=== PATIENT | female | born 1945 | race American Indian/Alaskan Native ===

== ENCOUNTER 2018-05-19 17:45 | Emergency (ER) | payer BC ==
[2018-05-19 18:22] VITALS: BMI 41.1
[2018-05-19 18:26] VITALS: TEMP 97.7
--- NOTE | 2018-05-19 19:05 | ED PDOC ---
Arrival/HPI - General Chief Complaint: Trauma Time Seen by Provider: 05/19/18 18:38 Historian: Patient - History of Present Illness Narrative History of Present Illness (Text): 05/19/18 18:57 72 yo F with pmh of arthritis and COPD presents with cc of right shoulder pain s/p fall yesterday morning. Patient reports that speed walking she tripped and fell on her right side slightly hitting her head and right knee on the ground. S he did not lose consciousness. Patient claims she had slight swelling on her right eye but she applied ice that reduced the swelling. Patient also complains of right knee pain and dyspnea on exertion when rushing, associated with her COPD. Patient denies any fevers, chills, dizziness, chest pain, shortness of breath, cough, diaphoresis, nausea, vomiting, diarrhea, back pain, neck pain, or any other complaint. Time/Duration: 24 hours Symptom Course: Unchanged Activities at Onset: Light Context: Home Past Medical History - Provider Review Nursing Documentation Reviewed: Yes - Infectious Disease Hx of Infectious Diseases: None - Psychiatric Hx Substance Use: No - Surgical History Hx Hysterectomy: Yes Family/Social History - Physician Review Nursing Documentation Reviewed: Yes Family/Social History: Unknown Family HX Smoking Status: Never Smoked Hx Alcohol Use: No Hx Substance Use: No Allergies/Home Meds Allergies/Adverse Reactions: Allergies tetanus and diphtheria toxoids Allergy (Verified 05/19/18 18:23) ANAPHYLAXIS nuts Allergy (Uncoded 05/19/18 18:23) ANAPHYLAXIS Review of Systems - Physician Review All systems were reviewed & negative as marked: Yes - Review of Systems Constitutional: Normal Eyes: Normal ENT: Normal Respiratory: Normal Cardiovascular: Normal Gastrointestinal: Normal Genitourinary Female: Normal Musculoskeletal: Arthralgias (right shoulder pain) Skin: Other (mild abraison on both palms of hand) Neurological: Normal Endocrine: Normal Hemo/Lymphatic: Normal Psychiatric: Normal Physical Exam Vital Signs Reviewed: Yes Vital Signs Temp Pulse BP Pulse Ox 05/19/18 18:24 97.7 F 74 136/88 97 Temperature: Afebrile Blood Pressure: Normal Pulse: Regular Appearance: Positive for: Well-Appearing, Non-Toxic, Comfortable Pain Distress: Mild Mental Status: Positive for: Alert and Oriented X 3 - Systems Exam Head: Present: Atraumatic, Normocephalic Pupils: Present: PERRL Extroacular Muscles: Present: EOMI Conjunctiva: Present: Normal Mouth: Present: Moist Mucous Membranes Neck: Present: Normal Range of Motion Respiratory/Chest: Present: Clear to Auscultation, Good Air Exchange. No: Respiratory Distress, Accessory Muscle Use Cardiovascular: Present: Regular Rate and Rhythm, Normal S1, S2. No: Murmurs Abdomen: No: Tenderness, Distention, Peritoneal Signs Back: Present: Normal Inspection Upper Extremity: Present: Tenderness (right shoulder). No: Cyanosis, Edema Lower Extremity: Present: Normal Inspection. No: Edema Neurological: Present: GCS=15, CN II-XII Intact, Speech Normal Skin: Present: Warm, Dry, Normal Color, Abrasion (mild on both palms of hand, ecchymosis on right upper lid). No: Rashes Psychiatric: Present: Alert, Oriented x 3, Normal Insight, Normal Concentration Medical Decision Making ED Course and Treatment: 05/19/18 19:10 Impression: 72 yo F with presents with cc of right shoulder pain s/p fall yesterday morning Differential Diagnosis included but are not limited to: -- Right shoulder fracture -- Maxillofacial fracture Plan: -- Ibuprofen -- Right shoulder x-ray -- Maxillofacial /o contrast -- Reassess and disposition Prior Visits: Notes and results from previous visits were reviewed. Progress Notes: - Scribe Statement The provider has reviewed the documentation as recorded by the Noe Reich All medical record entries made by the Scribe were at my direction and personally dictated by me. I have reviewed the chart and agree that the record accurately reflects my personal performance of the history, physical exam, medical decision making, and the department course for this patient. I have also personally directed, reviewed, and agree with the discharge instructions and disposition. Disposition/Present on Arrival - Present on Arrival Any Indicators Present on Arrival: No History of DVT/PE: No History of Uncontrolled Diabetes: No Urinary Catheter: No History of Decub. Ulcer: No History Surgical Site Infection Following: None - Disposition Have Diagnosis and Disposition been Completed?: Yes Diagnosis: Contusion, Shoulder pain Disposition Time: 21:30 Patient Problems: Current Active Problems Problem Status Onset Contusion Acute Shoulder pain Acute Condition: GOOD Discharge Instructions (ExitCare): Contusion (DC), Shoulder Pain (DC) Prescriptions: Ibuprofen [Motrin] 600 mg PO Q6 #20 tab Forms: [facility] (Serbian)
[2018-05-19 20:41] VITALS: RESP 18
[2018-05-19 22:14] VITALS: BP 132/69; PULSE 65; O2SAT 100
--- NOTE | 2018-05-19 23:20 | ED PDOC ---
Physical Exam Vital Signs Temp Pulse Resp BP Pulse Ox 05/19/18 22:14 65 18 132/69 100 05/19/18 20:41 69 18 134/74 98 05/19/18 18:24 97.7 F 74 136/88 97 Medical Decision Making ED Course and Treatment: 05/19/18 19:20 Case endorsed to me by Dr. Lincoln pending CT Maxillofacial w/o contrast, reassessment, and disposition. EXAM: CT Maxillofacial without Intravenous Contrast. Electronically signed on May 19, 2018 9:55:58 PM EDT by: Richie Ga M.D. IMPRESSION: Unremarkable maxillofacial CT. 05/19/18 23:28 On re-evaluation, patient is in no acute distress. I have discussed the results and plan with the patient, who expresses understanding. Patient in agreement with plan to be discharged home. Patient is stable for discharge. Patient was instructed to follow up with physician or return if symptoms worsen or new concerning symptoms arise. - RAD Interpretation Radiology Orders: 05/19/18 18:57 MAXILLOFACIAL W/O CONTRAST [CT] Stat SHOULDER RIGHT [RAD] Stat Radio Electrician: Radiologist - Medication Orders Current Medication Orders: Discontinued Medications Ibuprofen (Motrin Tab) 600 mg PO STAT STA Stop: 05/19/18 18:58 Last Admin: 05/19/18 19:42 Dose: 600 mg [facility] Pain/Vitals Document 05/19/18 19:42 LA (Rec: 05/19/18 19:44 LA [id number]) Pain Reassessment Is This A Pain ReAssessment? No Sleep Is patient sleeping during reassessment? No Presence of Pain Presence of Pain Yes Pain Scale Used Protocol: PSCALES Pain Scale Used Numeric Location Left, Right or Bilateral Right Pain Location Body Site Shoulder Intensity 7 Scale Used Numeric - Scribe Statement The provider has reviewed the documentation as recorded by the Noe Pelletier Provider Scribe Attestation: All medical record entries made by the Noe were at my direction and personally dictated by me. I have reviewed the chart and agree that the record accurately reflects my personal performance of the history, physical exam, medical decision making, and the department course for this patient. I have also personally directed, reviewed, and agree with the discharge instructions and disposition. Disposition/Present on Arrival - Present on Arrival Any Indicators Present on Arrival: No History of DVT/PE: No History of Uncontrolled Diabetes: No Urinary Catheter: No History of Decub. Ulcer: No History Surgical Site Infection Following: None - Disposition Have Diagnosis and Disposition been Completed?: Yes Diagnosis: Contusion, Shoulder pain Disposition: HOME/ ROUTINE Disposition Time: 23:21 Patient Plan: Discharge Condition: GOOD Discharge Instructions (ExitCare): Contusion (DC), Shoulder Pain (DC) Additional Instructions: Follow up with your doctor this week Prescriptions: Ibuprofen [Motrin] 600 mg PO Q6 #20 tab Forms: [employer] (Palestinian)
--- NOTE | 2018-05-20 09:36 | CT ---
Date of service: 05/19/2018 PROCEDURE: CT MAXILLOFACIAL BONES WITHOUT CONTRAST HISTORY: r/o fx COMPARISON: None available. TECHNIQUE: Contiguous axial CT images of the maxillofacial bones were obtained. Coronal and sagittal reformats were generated. Radiation dose: Total exam DLP = 758.48 mGy-cm. This CT exam was performed using one or more of the following dose reduction techniques: Automated exposure control, adjustment of the mA and/or kV according to patient size, and/or use of iterative reconstruction technique. FINDINGS: NASAL BONES: Unremarkable. ORBITS: Unremarkable. PARANASAL SINUSES/ MASTOIDS: Clear. MAXILLA: Unremarkable. MANDIBLE/ TEMPOROMANDIBULAR JOINTS: Unremarkable. SKULL BASE: Unremarkable. TEMPORAL BONES: Middle ears and mastoid grossly unremarkable. OTHER FINDINGS: The report concurs with the preliminary [facility] report IMPRESSION: Unremarkable non contrast enhanced CT of the maxillofacial bones.
--- NOTE | 2018-05-20 09:56 | RAD ---
Date of service: 05/19/2018 PROCEDURE: Radiographs of the Right Shoulder HISTORY: r/o fx COMPARISON: No prior. TECHNIQUE: 3 views obtained. FINDINGS: BONES: Normal. No fracture. JOINTS: Normal. Glenohumeral and acromioclavicular joints preserved. No osteoarthritis. SOFT TISSUES: Normal. OTHER FINDINGS: None. IMPRESSION: Normal radiographs of the right shoulder.
== END 2018-05-19 23:50 | disposition home or self-care (01) ==
LOC: ED 17:45 → MERGE 17:45 → ED 23:50
DX: S00.11XA Contusion of right eyelid and periocular area, initial encounter (principal); W01.0XXA Fall on same level from slipping, tripping and stumbling without subsequent striking against object, initial encounter; M25.511 Pain in right shoulder